=== PATIENT | male | born 1990 | race Two or more races ===

== ENCOUNTER 2023-09-28 06:45 | Day surgery (SDC) | payer OTHER ==
[~2023-09-28] VITALS: Ht 188 cm; Wt 59.0 kg
[2023-09-28] MEDS ORDERED: POVIDONE-IODINE 118 ML BOTT TOP ONE (10:00)
[2023-09-28] MEDS ORDERED: DIBUCAINE 30 GM TUBE ONE (10:00)
[2023-09-28] MEDS ORDERED: CEFTRIAXONE SODIUM 2,000 MG VIAL ONE (10:00)
[2023-09-28] MEDS ORDERED: METRONIDAZOLE/SODIUM CHLORIDE 500 MG/100 ML PIGGYBACK IV ONE (10:00)
[2023-09-28] MEDS ORDERED: BUPIVACAINE HCL/MPF 0.5% 30ML VIAL ONE (10:00)
[2023-09-28] MEDS ORDERED: LIDOCAINE HCL 1%/EPINEPHRINE 20ML VIAL IJ ONE (10:00)
[2023-09-28] MEDS ORDERED: HEMOSTATIC MATRIX 1 KIT KIT TOP ONE (10:07)
[2023-09-28] MEDS ORDERED: PERCOCET 5-3251 EACH PO (14:05)
[2023-09-28] MEDS ORDERED: CIPRO500 MG PO (14:05)
[2023-09-28] MEDS ORDERED: METRONIDAZOLE500 MG PO (14:06)
== END 2023-09-28 19:25 | disposition home or self-care (01) ==
LOC: CIR.AMB 06:45
PROVIDERS: ATTEND Surgery
DX: K62.82 Dysplasia of anus (principal); D37.5 Neoplasm of uncertain behavior of rectum; D37.6 Neoplasm of uncertain behavior of liver, gallbladder and bile ducts; R19.5 Other fecal abnormalities; R19.4 Change in bowel habit

== ENCOUNTER 2023-11-19 10:15 | Inpatient (IN) | payer OTHER ==
[~2023-11-19] VITALS: Ht 188 cm; Wt 59.9 kg
[~2023-11-19 10:15] MED LIST: CIPRO500 MG PO; METRONIDAZOLE500 MG PO; PERCOCET 5-3251 EACH PO
[2023-11-26] MEDS ORDERED: METRONIDAZOLE/SODIUM CHLORIDE 500 MG/100 ML PIGGYBACK IV ONE (14:45)
[2023-11-26] MEDS ORDERED: LIDOCAINE HCL 1%/EPINEPHRINE 20ML VIAL IJ ONE (14:45)
[2023-11-26] MEDS ORDERED: BUPIVACAINE HCL 30 ML VIAL IJ ONE (14:45)
[2023-11-26] MEDS ORDERED: CEFTRIAXONE SODIUM 2,000 MG VIAL IV ONE (14:45)
[2023-11-26] MEDS ORDERED: DIBUCAINE 30 GM TUBE RECTAL ONE (16:45)
[2023-11-26] MEDS ORDERED: HEMOSTATIC MATRIX 1 KIT KIT TOP ONE (16:45)
[2023-11-26] MEDS ORDERED: POVIDONE-IODINE 118 ML BOTT TOP ONE (16:45)
[2023-11-26] MEDS ORDERED: THROMBIN,HU/FIBRINOGEN/CALCIUM 10 ML SYRINGE TOP ONE (18:00)
[2023-11-26] MEDS ORDERED: OxyCODONE HCL 5 MG TABLET (ROXICODONE) PO PRN (18:30)
[2023-11-26] MEDS ORDERED: DEXTROSE 50 % IN WATER 0.5 G/ML DISP.SYRIN IV PRN (18:30)
[2023-11-26] MEDS ORDERED: 0.9 % SODIUM CHLORIDE 1,000 ML IV SCH (18:30)
[2023-11-26] MEDS ORDERED: MORPHINE SULFATE 4 MG/ML CARTRIDGE IV PRN (18:30)
[2023-11-26] MEDS ORDERED: ONDANSETRON HCL 2 MG/ML VIAL IV PRN (18:30)
[2023-11-26] MEDS ORDERED: MORPHINE SULFATE 4 MG/ML VIAL IV ONE ×2 (19:40→20:10)
[2023-11-26] MEDS ORDERED: ACETAMINOPHEN 500 MG GEL..CAP PO SCH (20:00)
[2023-11-26 20:13] LABS: HEMATOCRIT 34.5 % (39.0-48.0); HEMOGLOBIN 11.7 g/dL (13-16.00); MEAN CELL VOLUME 93.3 fL (80.0-100.00); MEAN CORPUSCULAR HEMOGLOBIN 31.6 pg (27.00-32.0); MEAN CORPUSCULAR HGB CONC 33.9 g/dl (32.0-36.0); PLATELET COUNT 332 K/uL (150-450); RED CELL DISTRIBUTION WIDTH 13.1 % (11.5-14.5)
[2023-11-26] MEDS ORDERED: MEPERIDINE HCL 25 MG/ML AMPUL IV ONE (20:40)
[2023-11-26 20:51] LABS: ALBUMIN 2.3 gm/dL (3.4-5.0); CREATININE SERUM 0.76 mg/dL (0.70-1.30); GFR 117.4; MAGNESIUM 1.6 mg/dL (1.8-2.4); PHOSPHOROUS 3.8 mg/dL (2.5-4.9); POTASSIUM 3.78 mEq/L (3.5-5.1)
[2023-11-26] MEDS ORDERED: FAMOTIDINE/PF 20 MG/2 ML VIAL IV PUSH SCH (21:00)
[2023-11-26] MEDS ORDERED: CELECOXIB 200 MG CAPSULE PO SCH (21:00)
[2023-11-26 21:15] VITALS: BP 164/91; O2SAT 100
[2023-11-27] MEDS ORDERED: METRONIDAZOLE/SODIUM CHLORIDE 500 MG/100 ML PIGGYBACK IV SCH (01:00)
[2023-11-27] MEDS ORDERED: GABAPENTIN 300 MG CAPSULE PO SCH (01:00)
[2023-11-27 01:07] VITALS: BP 139/89; O2SAT 99
[2023-11-27 07:20] LABS: HEMATOCRIT 35.1 % (39.0-48.0); MEAN CELL VOLUME 92.5 fL (80.0-100.00); MEAN CORPUSCULAR HEMOGLOBIN 31.5 pg (27.00-32.0); MEAN CORPUSCULAR HGB CONC 34.1 g/dl (32.0-36.0); PLATELET COUNT 291 K/uL (150-450); RED CELL DISTRIBUTION WIDTH 13.2 % (11.5-14.5)
[2023-11-27 07:43] LABS: ALBUMIN 2.3 gm/dL (3.4-5.0); CREATININE SERUM 0.69 mg/dL (0.70-1.30); GFR 131.25; MAGNESIUM 1.7 mg/dL (1.8-2.4); PHOSPHOROUS 4.7 mg/dL (2.5-4.9); POTASSIUM 3.86 mEq/L (3.5-5.1)
[2023-11-27 08:00] VITALS: BP 150/80; O2SAT 100
[2023-11-27] MEDS ORDERED: HYOSCYAMINE SULFATE 0.125 MG TAB.SUBL SL SCH (09:00)
[2023-11-27] MEDS ORDERED: TAMSULOSIN HCL 0.4 MG CAP PO SCH (09:00)
[2023-11-27 16:00] VITALS: BP 130/70; O2SAT 99
[2023-11-27] MEDS ORDERED: ENOXAPARIN SODIUM 40 MG/0.4 ML SYRINGE SUBCUTANEO SCH (17:00)
[2023-11-27] MEDS ORDERED: POLYETHYLENE GLYCOL 3350 17 GM BLIST.PACK PO SCH (17:00)
[2023-11-28 01:27] VITALS: BP 109/62; O2SAT 96
[2023-11-28 08:00] VITALS: BP 113/68; O2SAT 98
[2023-11-28] MEDS ORDERED: ENOXAPARIN SODIUM 40 MG/0.4 ML SYRINGE SUBCUTANEO SCH (09:00)
[2023-11-28 16:20] VITALS: BP 110/71; O2SAT 96
[2023-11-29 00:35] VITALS: BP 114/71; O2SAT 100
[2023-11-29 08:06] LABS: MEAN CELL VOLUME 93.2 fL (80.0-100.00); MEAN CORPUSCULAR HEMOGLOBIN 32.1 pg (27.00-32.0); MEAN CORPUSCULAR HGB CONC 34.5 g/dl (32.0-36.0); PLATELET COUNT 265 K/uL (150-450); RED BLOOD COUNT 3.44 M/uL (4.00-6.00); RED CELL DISTRIBUTION WIDTH 12.8 % (11.5-14.5)
[2023-11-29 08:13] VITALS: BP 127/85; O2SAT 97
[2023-11-29] MEDS ORDERED: CLOTRIMAZOLE 30 GM TUBE TOP SCH (11:16)
[2023-11-29 17:00] VITALS: BP 133/74; O2SAT 98
[2023-11-30 00:49] VITALS: BP 123/80; O2SAT 100
[2023-11-30 06:18] LABS: HEMATOCRIT 29.7 % (39.0-48.0); HEMOGLOBIN 10.3 g/dL (13-16.00); MEAN CELL VOLUME 94.4 fL (80.0-100.00); MEAN CORPUSCULAR HEMOGLOBIN 32.6 pg (27.00-32.0); MEAN CORPUSCULAR HGB CONC 34.6 g/dl (32.0-36.0); PLATELET COUNT 301 K/uL (150-450); RED BLOOD COUNT 3.14 M/uL (4.00-6.00); RED CELL DISTRIBUTION WIDTH 13.2 % (11.5-14.5)
[2023-11-30 06:40] LABS: BILIRUBIN TOTAL 0.33 mg/dL (0.3-1.2); CREATININE SERUM 0.48 mg/dL (0.70-1.30); GFR 199.52; GLOBULINA 3.6 G/DL (2.4-3.5); MAGNESIUM 1.8 mg/dL (1.8-2.4); POTASSIUM 3.53 mEq/L (3.5-5.1); TOTAL PROTEIN 5.6 gm/dL (6.4-8.2)
[2023-11-30 08:00] VITALS: BP 142/70; O2SAT 99
[2023-11-30] MEDS ORDERED: Cyanocobalamin/Mecobalamin 1 TAB.SL SL NR (11:00)
[2023-11-30] MEDS ORDERED: SOD FERRIC GLUC COMPLX/SUCROSE 62.5 MG/5 ML AMPUL IV NR (11:00)
[2023-11-30] MEDS ORDERED: HYOSCYAMINE0.125 M1 SL (13:42)
[2023-11-30] MEDS ORDERED: TAMS0.4C PO (13:43)
[2023-11-30] MEDS ORDERED: ABANEU-SL TABL1 EACH SL (13:43)
[2023-11-30] MEDS ORDERED: INTEGRA F CAPS1 EACH PO (13:43)
[2023-11-30] MEDS ORDERED: TRAM1TAB98 PO (13:44)
[2023-11-30] MEDS ORDERED: PEPCID AC20 MG PO (13:44)
[2023-11-30] MEDS ORDERED: LEVOFLOXACIN500 MG PO (13:45)
[2023-12-01] MEDS ORDERED: Cyanocobalamin/Mecobalamin 1 TAB.SL SL SCH (09:00)
[2023-12-01] MEDS ORDERED: SOD FERRIC GLUC COMPLX/SUCROSE 62.5 MG in 0.9 % SODIUM CHLORIDE 50 ML IV SCH (09:00)
== END 2023-11-30 14:50 | disposition home or self-care (01) | DRG 331 ==
LOC: O/R 11-26 09:18 → SURH 11-26 09:18 → EDSTATUS 11-26 10:15 → SURH 11-26 10:15 → SURG 11-26 18:08 → SURH 11-26 19:16
PROVIDERS: Specialist; ADMIT Surgery; ATTEND Surgery
PROC: 0DBN4ZZ Excision of Sigmoid Colon, Percutaneous Endoscopic Approach (ICD-10-PCS; 2023-11-26)
PROC: 0DBQ4ZZ Excision of Anus, Percutaneous Endoscopic Approach (ICD-10-PCS; 2023-11-26)
PROC: 0D1N4Z4 Bypass Sigmoid Colon to Cutaneous, Percutaneous Endoscopic Approach (ICD-10-PCS; 2023-11-26)
PROC: 07BC4ZZ Excision of Pelvis Lymphatic, Percutaneous Endoscopic Approach (ICD-10-PCS; 2023-11-26)
PROC: 0D1N4Z4 Bypass Sigmoid Colon to Cutaneous, Percutaneous Endoscopic Approach (ICD-10-PCS; principal; 2023-11-26 16:15)
DX: D37.5 Neoplasm of uncertain behavior of rectum (principal); R19.5 Other fecal abnormalities; R19.4 Change in bowel habit; R93.5 Abnormal findings on diagnostic imaging of other abdominal regions, including retroperitoneum

== ENCOUNTER 2024-11-07 06:00 | Day surgery (SDC) | payer OTHER ==
[2024-10-28 10:11] LABS: ALT/SGPT 23.0 U/L (12-78); AST/SGOT 16.0 U/L (15-37); BILIRUBIN TOTAL 2.31 mg/dL (0.3-1.2); BUN CREA RATIO 14.0 (7.0-25.0); CREATININE SERUM 0.69 mg/dL (0.70-1.30); GFR 130.48; GLOBULINA 3.8 G/DL (2.4-3.5); GLUCOSE FASTING 99.0 mg/dL (65-100); OSMOLALITY SERUM 278.0 MOSM/KG (275-295)
[2024-10-28 10:29] LABS: INR 1.04
[2024-10-28 10:34] LABS: BASO % 0.8 % (0.1-1.2); EOS # 0.16 (0.04-0.54); EOS % 3.2 % (0.7-7.0); LYMPH # 1.21 (1.18-3.74); LYMPH % 24.4 % (19.3-53.1); MEAN PLATELET VOLUME 10.30 fl (9.4-12.4); MONO # 0.41 (0.24-0.82); MONO % 8.3 % (4.7-12.5); NEUT # 3.12 (1.56-6.13); NEUT % 63.1 % (34.0-71.1); RED CELL DISTRIBUTION WIDTH 13.2 % (11.6-14.4)
[~2024-11-07 06:00] MED LIST changes: +ABANEU-SL TABL1 EACH SL; +HYOSCYAMINE0.125 M1 SL; +INTEGRA F CAPS1 EACH PO; +LEVOFLOXACIN500 MG PO; +PEPCID AC20 MG PO; +TAMS0.4C PO; +TRAM1TAB98 PO
[2024-11-07] MEDS ORDERED: CEFAZOLIN SODIUM 1,000 MG VIAL IV SCH (07:45)
[2024-11-07] MEDS ORDERED: LIDOCAINE HCL 1%/EPINEPHRINE 20ML VIAL IJ ONE (07:45)
[2024-11-07] MEDS ORDERED: BUPIVACAINE HCL 30 ML VIAL IJ ONE (07:45)
[2024-11-07] MEDS ORDERED: TRAM1TAB98 PO (07:47)
== END 2024-11-07 10:20 | disposition home or self-care (01) ==
LOC: CIR.AMB 06:00
PROVIDERS: ATTEND Surgery
DX: T82.594A Other mechanical complication of infusion catheter, initial encounter (principal); C20 Malignant neoplasm of rectum